=== PATIENT | female | born 1970 | race Caucasian/White ===

== ENCOUNTER 2016-11-21 13:32 | Emergency (ER) | payer MEDICARE, BC ==
--- NOTE | 2016-11-21 14:03 | EDM.PDOC ---
ED HPI SEIZURE COMPLAINT - General Chief Complaint: Neurological Problem Stated Complaint: IN BY AMBULANCE Time Seen by Provider: 11/21/16 13:35 Source of Information: Reports: Patient, EMS, Family (Pt's mother), RN, RN notes reviewed History Limitations: Reports: Physical impairment (chronic expressive aphasia) - History of Present Illness INITIAL COMMENTS - FREE TEXT/NARRATIVE: Arrives by ambulance following a brief witnessed seizure. Pt was postictal on arrival to ER. Total postictal phase lasted approx. 30 minutes. Pt denies any pain or injury. 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 Pt's mother arrived to ER and was able to provide a detailed history. Pt usually stays home and does not come to the ER when she has a seizure, but today she was out walking her dog and a bystander called 911. Pt politely declines lab draws and CT Head due to her long history, and familiarity with her symptoms. Symptom Onset Date: 11/21/16 Timing/Duration: Reports: seconds: (Reported to have been less than 30 seconds.) , resolved prior to arrival Event Occurred (Where): other Event (Witnessed/Unwitnessed): witnessed Location: Reports: generalized Quality: Reports: generalized shaking Severity: moderate Context: Reports: other (Chronic seizure disorder). Denies: recent ETOH, new/ change in medications, missed med dose(s), illness, trauma, photo stimulation, activity/exercise Pre Event Symptom(s): Reports: no other symptoms Event Symptoms: Reports: no other symptoms Post Event Symptoms: Reports: confused, altered speech, postictal duration: ( 30mins.) Associated Injuries: Reports: other (none) Treatments ORBITREAD OPERATOR: Reports: IV/IO, Other medication(s) (Ativan 2mg IVP by EMS) - Related Data Allergies/ADRs: Allergies Allergy/AdvReac Type Severity Reaction Status Date / Time No Known Allergies Allergy Verified 03/12/15 22:52 Home Meds: Home Meds OXcarbazepine [Oxcarbazepine] 300 mg PO BID 01/11/14 [History] levETIRAcetam [Keppra XR] 1,500 mg PO BID 01/11/14 [History] Phenytoin Sodium Extended [Dilantin] 2 caplet PO DAILY 10/15/14 [History] Phenytoin Sodium Extended [Dilantin] 3 cap PO DAILY 10/16/14 [History] Past Medical History Cardiovascular History: Reports: Other (see below) (Cerebral AVM) Neurological History: Reports: Seizure, Other (see below) (Cerebral AVM, Partial Right sided hemiparesis, Expressive aphasia) - Past Surgical History Head Surgeries/Procedures: Reports: Other (see below) (Neurostimulator to abort seizures) Social & Family History - Family History Family Medical History: Noncontributory - Tobacco Use Smoking Status *Q: Never Smoker Second Hand Smoke Exposure: No - Alcohol Use Days Per Week of Alcohol Use: 0 - Recreational Drug Use Recreational Drug Use: No - Living Situation & Occupation Living situation: Reports: with family Occupation: retired ED ROS GENERAL - Review of Systems Review Of Systems: See Below Constitutional: Reports: no symptoms HEENT: Reports: No symptoms Respiratory: Reports: No Symptoms Cardiovascular: Reports: No symptoms Endocrine: Reports: no symptoms GI/Abdominal: Reports: No symptoms : Reports: no symptoms Musculoskeletal: Reports: no symptoms Skin: Reports: no symptoms Neurological: Reports: Confusion (postictal), Pre-Existing Deficit. Denies: Headache Psychiatric: Reports: No symptoms Hematologic/Lymphatic: Reports: no symptoms Immunologic: Reports: no symptoms - Physical Exam Exam: See Below Exam Limited By: Physical impairment (chronic partial Rt hemiparesis and expressive aphasia) General Appearance: alert, WD/WN, no apparent distress Eye Exam: bilateral eye: EOMI, normal fundi, normal inspection, PERRL Ears: normal external exam, normal canal, hearing grossly normal, normal TMs Nose: normal inspection, normal mucosa, no blood Throat/Mouth: Normal inspection, Normal lips, Normal teeth, Normal gums, Normal oropharynx, Normal voice, No airway compromise Head Exam: atraumatic, normocephalic Neck: normal inspection, supple, non-tender, full range of motion Respiratory/Chest: no respiratory distress, lungs clear, normal breath sounds, no accessory muscle use, chest non-tender Cardiovascular: normal peripheral pulses, regular rate, rhythm, no edema, no gallop, no JVD, no murmur, no rub GI/Abdominal: normal bowel sounds, soft, non tender, no organomegaly, no distention, no abnormal bruit, no mass Neuro Exam (Abbreviated): alert, oriented, other (confused/postictal on arrival , chronic/stable neuro. deficits) Back Exam: normal inspection Extremities: normal inspection, normal range of motion, non-tender, no pedal edema, normal capillary refill Psychiatric: normal affect, normal mood Skin Exam: Warm, Dry, Intact, Normal color, No rash Course - Vital Signs Last Recorded V/S: Last Vital Signs Temp 36.6 C 11/21/16 13:32 Pulse 69 11/21/16 13:32 Resp 18 11/21/16 13:32 BP 132/68 11/21/16 13:32 Pulse Ox 97 11/21/16 13:32 - Orders/Labs/Meds Orders: Pt declined lab and CT head. Departure - Departure Time of Disposition: 14:01 Disposition: Home, Self-Care 01 Condition: good Clinical Impression: Seizure, History of seizure disorder Instructions: Seizure, Adult, [id number] Forms: ED Department Discharge Additional Instructions: Take your regular medications as prescribed. Follow up in clinic with your doctor if any further problems. Return to ER if worse at any time.
== END 2016-11-21 14:03 | disposition home or self-care (01) ==
LOC: DL.ED 13:32
CPT/HCPCS: 99284

== ENCOUNTER 2020-10-07 15:16 | Inpatient (IN) | payer MEDICARE, BC, MEDICAID ==
--- NOTE | 2020-10-07 16:52 | PCM.HP ---
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 She was discharged to our swing bed from [facility] after undergoing lt Temporal Lobectomy for persistent seizure. At bedside evaluation patient was seen sitting comfortably in bed in no distress. She denies any complaint apart from minimal incisional pain. No pain. Patient says she is only tired. She reports no fever or chills. Onset of Symptoms: Reports: Gradual Duration of Symptoms: Reports: Day(s): Location: Reports: Head Quality: Reports: Ache Severity: Mild Improves with: Reports: None Worsens with: Reports: None Associated Symptoms: Reports: No Other Symptoms - Related Data Allergies/Adverse Reactions: Allergies Allergy/AdvReac Type Severity Reaction Status Date / Time No Known Allergies Allergy Verified 10/07/20 09:47 Home Medications: Home Meds levETIRAcetam [Keppra XR] 1,500 mg PO DAILY 01/11/14 [History] Acetaminophen [Pain Relief Extra Strength] 1,000 mg PO Q6HR PRN 10/07/20 [History] Lacosamide [Vimpat] 100 mg PO DAILY 10/07/20 [History] Lacosamide [Vimpat] 200 mg PO BEDTIME 10/07/20 [History] Lacosamide [Vimpat] 200 mg PO DAILY 10/07/20 [History] Ondansetron [Zofran] 4 mg PO Q8HR PRN 10/07/20 [History] lamoTRIgine [Lamictal] 100 mg PO BID 10/07/20 [History] levETIRAcetam [Keppra XR] 2,000 mg PO BEDTIME 10/07/20 [History] oxyCODONE 5 mg PO Q4HR PRN 10/07/20 [History] polyethylene glycoL 3350 [MiraLAX] 17 gm PO DAILY 10/07/20 [History] Past Medical History Cardiovascular History: Reports: Other (See Below) 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: Neurological History: Reports: Seizure, Other (See Below) Other Neuro History: aVM, closed head injury; aphasia - Past Surgical History Head Surgeries/Procedures: Reports: Other (See Below) Neurological Surgical History: Reports: Other (See Below) Other Neurological Surgeries/Procedures: Lobectomy of left side Sep 2020 Social & Family History - Family History Family Medical History: No Pertinent Family History - Tobacco Use Tobacco Use Status *Q: Never Tobacco User Second Hand Smoke Exposure: No - Caffeine Use Caffeine Use: Reports: None - Recreational Drug Use Recreational Drug Use: No - Living Situation & Occupation Living situation: Reports: with Family Occupation: Retired H&P Review of Systems - Review of Systems: Review Of Systems: See Below General: Reports: No Symptoms, Other (As per HPI) HEENT: Reports: No Symptoms Pulmonary: Reports: No Symptoms Cardiovascular: Reports: No Symptoms Gastrointestinal: Reports: No Symptoms Genitourinary: Reports: No Symptoms Musculoskeletal: Reports: No Symptoms Skin: Reports: No Symptoms Psychiatric: Reports: No Symptoms Neurological: Reports: No Symptoms Hematologic/Lymphatic: Reports: No Symptoms Immunologic: Reports: No Symptoms Exam - Exam Exam: See Below - Vital Signs Weight: 176 lb 12.8 oz - Exam General: Alert, Oriented, 4 HEENT: Conjunctiva Clear, EACs Clear, EOMI, Hearing Intact, Mucosa Moist & Sully, Nares Patent, Normal Nasal Septum, Posterior Pharynx Clear, TMs Clear, Other (Surgical incision to left temporal side), PERRLA (. Stitches in place.) Neck: Supple, Trachea Midline, 2 Lungs: Clear to Auscultation, Normal Respiratory Effort Cardiovascular: Regular Rate, Regular Rhythm GI/Abdominal Exam: Normal Bowel Sounds, Soft, Non-Tender, No Organomegaly, No Distention, No Abnormal Bruit, No Mass, Pelvis Stable (Female) Exam: Normal External Exam, Normal Speculum Exam, Normal Bimanual Exam Rectal (Female) Exam: Normal Exam, Normal Rectal Tone Back Exam: Normal Inspection, Full Range of Motion, NT Extremities: Normal Inspection, Normal Range of Motion, Non-Tender, No Pedal Edema, Normal Capillary Refill Skin: Warm, Dry, Intact Neurological: Cranial Nerves Intact, Reflexes Equal Bilateral Neuro Extensive - Mental Status: Alert, Oriented x3, Normal Mood/Affect, Normal Cognition Neuro Extensive - Motor, Sensory, Reflexes: CN II-XII Intact, Normal Gait, Normal Reflexes Psychiatric: Alert, Normal Affect, Normal Mood - Problem List (1) Lobectomy for seizures consultation SNOMED Code(s): 112670066 ICD Code: Z71.89 - OTHER SPECIFIED COUNSELING; R56.9 - UNSPECIFIED CONVULSIONS Status: Acute Current Visit: Yes Problem List Initiated/Reviewed/Updated: Yes Orders Last 24hrs: Active Orders 24 hr Category Date Time Status Patient Status [ADT] Routine ADT 10/07/20 16:43 Ordered Ambulate [RC] ASDIRECTED Care 10/07/20 16:42 Ordered Antiembolic Devices [RC] PER UNIT ROUTINE Care 10/07/20 16:48 Ordered Notify Provider Vital Signs [RC] ASDIRECTED Care 10/07/20 16:45 Ordered Oxygen Therapy [RC] PRN Care 10/07/20 16:43 Ordered VTE/DVT Education [RC] PER UNIT ROUTINE Care 10/07/20 16:43 Ordered Vital Signs [RC] Q4H Care 10/07/20 16:43 Ordered OT Evaluation and Treatment [CONS] Routine Cons 10/07/20 16:42 Ordered PT Evaluation and Treatment [CONS] Routine Cons 10/07/20 16:42 Ordered Regular Diet [DIET] Diet 10/07/20 Dinner Ordered CBC W/O DIFF,HEMOGRAM [HEME] AM Lab 10/08/20 05:11 Ordered Acetaminophen [TylenoL] Med 10/07/20 16:42 Ordered 650 mg PO Q4H PRN Heparin Sodium Med 10/07/20 21:00 Ordered 5,000 units SUBCUT Q12HR Sequential Compression Device [OM.PC] Per Unit Routine Oth 10/07/20 16:47 Ordered Resuscitation Status Routine Resus Stat 10/07/20 16:42 Ordered Assessment/Plan Comment:: #S/p Left temporal lobectomy for seizure disorder Continue seizure medication Tylenol for headache Monitor for seizures Physical therapy Patient #Regular diet #Full code
[2020-10-07] MEDS ORDERED: Ondansetron 4 MG Tab.DIS PO PRN (17:02)
[2020-10-07] MEDS: oxyCODONE 5 MG Tab PO PRN (18:42)
[2020-10-07] MEDS ORDERED: levETIRAcetam 500 MG Tab PO ONE (19:00)
[2020-10-07] MEDS ORDERED: levETIRAcetam 500 MG Tab PO SCH ×2 (19:00→21:00)
[2020-10-07] MEDS ORDERED: LACOSAMIDE 200 MG PO SCH (21:00)
[2020-10-07] MEDS: lamoTRIgine 100 MG Tab PO SCH (21:39)
[2020-10-08] MEDS: oxyCODONE 5 MG Tab PO PRN (03:31)
[2020-10-08] MEDS: Acetaminophen 325 MG Tab PO PRN ×3 (03:35→20:02)
[2020-10-08] MEDS: Polyethylene Glycol 3350 Powder 17 GM Packet PO SCH (09:37)
[2020-10-08] MEDS: lamoTRIgine 100 MG Tab PO SCH ×2 (09:38→20:03)
[2020-10-08] MEDS: levETIRAcetam 500 MG Tab PO SCH ×2 (09:38→20:03)
[2020-10-08] MEDS: Heparin Sodium 5,000 Units/ML Vial SUBCUT SCH ×2 (09:39→20:07)
[2020-10-08] MEDS: [UNRECOGNIZED DRUG - REMARK] PO SCH (09:55)
[2020-10-08] MEDS: LACOSAMIDE 200 MG PO SCH ×2 (13:22→20:04)
[2020-10-09] MEDS: Acetaminophen 325 MG Tab PO PRN ×2 (01:20→08:30)
[2020-10-09] MEDS: levETIRAcetam 500 MG Tab PO SCH ×3 (09:03→20:10)
[2020-10-09] MEDS: Heparin Sodium 5,000 Units/ML Vial SUBCUT SCH ×3 (09:04→20:10)
[2020-10-09] MEDS: lamoTRIgine 100 MG Tab PO SCH ×3 (09:04→20:10)
[2020-10-09] MEDS: Polyethylene Glycol 3350 Powder 17 GM Packet PO SCH (09:05)
[2020-10-09] MEDS: [UNRECOGNIZED DRUG - REMARK] PO SCH (09:18)
[2020-10-09] MEDS: LACOSAMIDE 200 MG PO SCH ×3 (13:18→20:10)
[2020-10-09] MEDS ORDERED: Magnesium Hydroxide 400 MG/5 ML Susp 30 ML Cup PO PRN (16:14)
[2020-10-09] MEDS: Docusate Sodium 100 MG Cap PO PRN (19:40)
[2020-10-10] MEDS: lamoTRIgine 100 MG Tab PO SCH ×2 (08:38→20:14)
[2020-10-10] MEDS: Heparin Sodium 5,000 Units/ML Vial SUBCUT SCH ×2 (08:38→20:14)
[2020-10-10] MEDS: levETIRAcetam 500 MG Tab PO SCH ×2 (08:39→20:14)
[2020-10-10] MEDS: [UNRECOGNIZED DRUG - REMARK] PO SCH (08:40)
[2020-10-10] MEDS: Polyethylene Glycol 3350 Powder 17 GM Packet PO SCH (08:40)
[2020-10-10] MEDS: LACOSAMIDE 200 MG PO SCH ×2 (12:54→20:16)
[2020-10-10] MEDS: Docusate Sodium 100 MG Cap PO PRN (20:19)
[2020-10-11] MEDS: Heparin Sodium 5,000 Units/ML Vial SUBCUT SCH ×2 (08:07→21:00)
[2020-10-11] MEDS: lamoTRIgine 100 MG Tab PO SCH ×3 (08:08→21:00)
[2020-10-11] MEDS: levETIRAcetam 500 MG Tab PO SCH ×3 (08:08→21:00)
[2020-10-11] MEDS: [UNRECOGNIZED DRUG - REMARK] PO SCH (08:09)
[2020-10-11] MEDS: Polyethylene Glycol 3350 Powder 17 GM Packet PO SCH (08:11)
[2020-10-11] MEDS: LACOSAMIDE 200 MG PO SCH ×3 (14:39→21:00)
[2020-10-12] MEDS: Heparin Sodium 5,000 Units/ML Vial SUBCUT SCH (08:26)
[2020-10-12] MEDS: levETIRAcetam 500 MG Tab PO SCH (08:28)
[2020-10-12] MEDS: [UNRECOGNIZED DRUG - REMARK] PO SCH (08:28)
[2020-10-12] MEDS: lamoTRIgine 100 MG Tab PO SCH (08:28)
[2020-10-12 08:37] VITALS: BP 96/60; PULSE 78
--- NOTE | 2020-10-12 09:26 | PCM.DCSUM1 ---
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 She was discharged to our swing bed from [facility] after undergoing the temporal Lobectomy for persistent seizure. Her stay was uneventful. She is being discharged home. She will follow-up with neurosurgery, neurology and PCP. Diagnosis: Stroke: No - Discharge Data Discharge Date: 10/12/20 Discharge Disposition: Home, Self-Care 01 Condition: Good - Referral to Home Health Primary Care Physician: PCP None - Discharge Diagnosis/Problem(s) (1) Lobectomy for seizures consultation SNOMED Code(s): 767775453 ICD Code: Z71.89 - OTHER SPECIFIED COUNSELING; R56.9 - UNSPECIFIED CONVULSIONS Status: Acute Current Visit: Yes - Patient Summary/Data Consults: Consultations 10/07/20 16:42 OT Evaluation and Treatment [CONS] Routine PT Evaluation and Treatment [CONS] Routine 10/08/20 10:57 Consult to Speech Language Pathology [CONTROL SYSTEMS DESIGNER Evaluation and Treatment] [CONS] Routine - Patient Instructions Diet: Regular Diet as Tolerated Activity: As Tolerated Driving: Do Not Drive Showering/Bathing: May Shower Notify Provider of: Fever, Increased Pain, Nausea and/or Vomiting - Discharge Plan *PRESCRIPTION DRUG MONITORING PROGRAM REVIEWED*: Not Applicable *COPY OF PRESCRIPTION DRUG MONITORING REPORT IN PATIENT JESSICA: Not Applicable Home Medications: Home Meds Acetaminophen [Pain Relief Extra Strength] 1,000 mg PO Q6HR PRN 10/07/20 [History] Lacosamide [Vimpat] 100 mg PO DAILY 10/07/20 [History] Lacosamide [Vimpat] 200 mg PO BEDTIME 10/07/20 [History] Lacosamide [Vimpat] 200 mg PO DAILY 10/07/20 [History] Ondansetron [Zofran] 4 mg PO Q8HR PRN 10/07/20 [History] lamoTRIgine [Lamictal] 100 mg PO BID 10/07/20 [History] levETIRAcetam [Keppra] 1,500 mg PO DAILY 10/07/20 [History] levETIRAcetam [Keppra] 2,000 mg PO BEDTIME 10/07/20 [History] oxyCODONE 5 mg PO Q4HR PRN 10/07/20 [History] polyethylene glycoL 3350 [MiraLAX] 17 gm PO DAILY 10/07/20 [History] Oxygen Therapy Mode: Room Air - Discharge Summary/Plan Comment DC Time >30 min.: Yes - General Info Date of Service: 10/12/20 Admission Dx/Problem (Free Text: Admission Diagnosis/Problem Admission Diagnosis/Problem Weakness Functional Status: Reports: Pain Controlled - Review of Systems General: Reports: No Symptoms HEENT: Reports: No Symptoms Pulmonary: Reports: No Symptoms Cardiovascular: Reports: No Symptoms Gastrointestinal: Reports: No Symptoms Genitourinary: Reports: No Symptoms Musculoskeletal: Reports: No Symptoms Skin: Reports: No Symptoms Neurological: Reports: No Symptoms Psychiatric: Reports: No Symptoms - Patient Data Vitals - Most Recent: Last Vital Signs Temp 97.3 F 10/12/20 08:00 Pulse 78 10/12/20 08:00 Resp 18 10/12/20 08:00 BP 96/60 10/12/20 08:00 Pulse Ox 98 10/12/20 08:00 Weight - Most Recent: 176 lb 12.8 oz I&O - Last 24 hours: Intake & Output 10/11/20 10/12/20 10/12/20 22:59 06:59 14:59 Intake Total 240 Balance 240 Med Orders - Current: Current Medications Acetaminophen (Tylenol) 650 mg PO Q4H PRN PRN Reason: Pain (Mild 1-3)/fever Last Admin: 10/09/20 08:30 Dose: 650 mg Documented by: Docusate Sodium (Colace) 100 mg PO BID PRN PRN Reason: Constipation Last Admin: 10/10/20 20:19 Dose: 100 mg Documented by: Heparin Sodium (Porcine) (Heparin Sodium) 5,000 units SUBCUT Q12HR [facility] Last Admin: 10/12/20 08:26 Dose: Not Given Documented by: Lamotrigine (Lamotrigine) 100 mg PO BID [facility] Last Admin: 10/12/20 08:28 Dose: 100 mg Documented by: Levetiracetam (Keppra) 1,500 mg PO DAILY [facility] Last Admin: 10/12/20 08:28 Dose: 1,500 mg Documented by: Levetiracetam (Keppra) 2,000 mg PO BEDTIME [facility] Last Admin: 10/11/20 21:00 Dose: Not Given Documented by: Magnesium Hydroxide (Milk Of Magnesia) 30 ml PO BID PRN PRN Reason: Constipation Lacosamide [Vimpat] 200 Mg Tab Non Form Med 0 mg PO DAILY [facility] Last Admin: 10/12/20 08:28 Dose: 100 mg Documented by: Lacosamide [Vimpat] 200 Mg Tab- Nonform Med 200 mg PO BID@1200,2100 [facility] Last Admin: 10/11/20 21:00 Dose: Not Given Documented by: Ondansetron HCl (Zofran Odt) 4 mg PO Q8HR PRN PRN Reason: Nausea Oxycodone HCl (Oxycodone) 5 mg PO Q4HR PRN PRN Reason: Pain (moderate 4-6) Last Admin: 10/08/20 03:31 Dose: 5 mg Documented by: Polyethylene Glycol (Miralax) 17 gm PO DAILY [facility] Last Admin: 10/11/20 08:11 Dose: Not Given Documented by: Senna/Docusate Sodium (Senna Plus) 1 tab PO BID PRN PRN Reason: Constipation Last Admin: 10/09/20 19:40 Dose: 1 tab Documented by: Discontinued Medications Levetiracetam (Keppra) 2,000 mg PO BEDTIME [facility]ID Levetiracetam (Keppra) 2,000 mg PO ONETIME DAVID Levetiracetam (Keppra) 2,000 mg PO ONETIME ONE Stop: 10/07/20 19:01 Last Admin: 10/07/20 18:44 Dose: 2,000 mg Documented by: - Exam General: Reports: Alert, Oriented HEENT: Reports: Pupils Equal, Pupils Reactive, EOMI, Mucous Membr. Moist/Vernal Neck: Reports: Supple Lungs: Reports: Clear to Auscultation, Normal Respiratory Effort Cardiovascular: Reports: Regular Rate, Regular Rhythm GI/Abdominal Exam: Normal Bowel Sounds, Soft, Non-Tender, No Organomegaly, No Distention, No Abnormal Bruit, No Mass, Pelvis Stable (Female) Exam: Normal External Exam, Normal Speculum Exam, Normal Bimanual Exam Rectal (Female) Exam: Normal Exam, Normal Rectal Tone Back Exam: Reports: Normal Inspection, Full Range of Motion Extremities: Normal Inspection, Normal Range of Motion, Non-Tender, No Pedal Edema, Normal Capillary Refill Skin: Reports: Warm, Dry, Intact Wound/Incisions: Reports: Healing Well Neurological: Reports: No New Focal Deficit Psy/Mental Status: Reports: Alert, Normal Affect, Normal Mood
[2020-10-12] MEDS: Polyethylene Glycol 3350 Powder 17 GM Packet PO SCH (11:41)
[2020-10-12] MEDS: LACOSAMIDE 200 MG PO SCH (13:23)
== END 2020-10-12 12:07 | disposition home or self-care (01) | DRG 57 ==
LOC: DL.MS 15:39
PROVIDERS: ADMIT Student in an Organized Health Care Education/Training Program; ATTEND Student in an Organized Health Care Education/Training Program
DX: I69.151 Hemiplegia and hemiparesis following nontraumatic intracerebral hemorrhage affecting right dominant side (principal); I69.152 Hemiplegia and hemiparesis following nontraumatic intracerebral hemorrhage affecting left dominant side; R56.9 Unspecified convulsions; Z71.89 Other specified counseling; Z79.899 Other long term (current) drug therapy; I69.120 Aphasia following nontraumatic intracerebral hemorrhage; N18.9 Chronic kidney disease, unspecified
CPT/HCPCS: 36415; 85027; 97110-GO; 97162-GP; 97165-GO; 97530-GO; 99306; 99316; A9270-GY; J1644